=== PATIENT | male | born 1965 | race Caucasian/White ===

== ENCOUNTER 2017-04-09 12:59 | Emergency (ER) | payer MEDICAID ==
[~2017-04-09] VITALS: Ht 177.8 cm; Wt 88.9 kg
[~2017-04-09 12:59] MED LIST: ALLO100T30 PO; AMIO200T42 PO; ASPI-621 PO; CEPH-375 PO; DOCU-131 PO; ERGO500017 PO; GUAI200T3 PO; HYDR-3307 PO; METO25TA35 PO; OMEP-110 PO; OXYC5TAB3 PO; PRED5TAB PO; WARF1TAB7 PO
[2017-04-09 13:02] VITALS: BP 97/64
[2017-04-09] MEDS ORDERED: ONDANSETRON 2MG/ML, 2ML IVPush ONE (13:30)
[2017-04-09] MEDS ORDERED: SODIUM CHLORIDE 0.9% 1,000ML IVBOLUS ONE (13:30)
[2017-04-09 13:46] LABS: BASOPHILS # (AUTO) 0.02 x10^3/uL (0-0.1); BASOPHILS % (AUTO) 0 % (0-1); EOSINOPHILS % (AUTO) 0 % (1-7); LYMPHOCYTES # (AUTO) 1.56 x10^3/uL (1-3.4); LYMPHOCYTES % (AUTO) 24 % (22-44); MD NO; MEAN CORPUSCULAR HEMOGLOBIN 31.8 pg (27.5-34.5); MEAN CORPUSCULAR HGB CONC 33.8 g/dL (33.2-36.2); MEAN CORPUSCULAR VOLUME 94.2 fL (81-97); MEAN PLATELET VOLUME 9.2 fL (7.4-10.4); MONOCYTES # (AUTO) 1.02 x10^3/uL (0.2-0.8); MONOCYTES % (AUTO) 16 % (2-9); NEUTROPHILS # (AUTO) 3.97 x10^3/uL (1.8-6.8); NEUTROPHILS % (AUTO) 60 % (42-75); PLATELET COUNT 168 x10^3/uL (130-400); RED BLOOD COUNT 4.77 x10^6/uL (4.38-5.82)
[2017-04-09 13:48] LABS: ALANINE AMINOTRANSFERASE 36 U/L (12-78); ALBUMIN 3.8 g/dL (3.4-5.0); ANION GAP 15 mmol/L (5-15); CALCIUM 9.7 mg/dL (8.5-10.1); CHLORIDE 103 mmol/L (98-107)
[2017-04-09 13:51] LABS: ALKALINE PHOSPHATASE 55 U/L (45-117); BILIRUBIN,TOTAL 0.6 mg/dL (0.2-1.0); CREATININE 3.69 mg/dL (0.7-1.3); TOTAL PROTEIN 8.2 g/dL (6.4-8.2)
[2017-04-09 17:13] LABS: CLOSTRIDIUM DIFFICILE ANTIGEN NEGATIVE; CLOSTRIDIUM DIFFICILE TOXIN NEGATIVE (Negative)
== END 2017-04-09 18:18 | disposition home or self-care (01) ==
LOC: ED 18:10
DX: E86.0 Dehydration (principal); K52.9 Noninfective gastroenteritis and colitis, unspecified; N18.3 Chronic kidney disease, stage 3 (moderate)
CPT/HCPCS: 36415; 80053; 85025; 87324; 89055; 96360; 99284; J7030

== ENCOUNTER 2018-05-27 11:35 | Emergency (ER) | payer BC, MEDICAID, OTHER ==
[~2018-05-27] VITALS: Ht 177.8 cm; Wt 92.0 kg
[~2018-05-27 11:35] MED LIST changes: -ASPI-621 PO; +ASPI81TA45 PO; -WARF1TAB7 PO; +WARF1TAB74 PO
--- NOTE | 2018-05-27 11:42 | NUR ---
52 YR OLD MALE ARRIVED VIA EMS WITH C/O "PRESSURE/SHARP PAIN BEHIND LEFT SHOULDER BLADE, L ARM AND L NECK. HAD DIZZINESS AND NAUSEA. PT CALLED 911 APPROX 45 MIN LATER. PAIN INITIALLY 9/10. PT CURRENTLY DENIES PAIN. PT ARRIVES WITH NS LOCK IN RAC. SR PER MONITOR, AUTO BP AND PULSE OX IN PLACE. DR LLANES AT BEDSIDE TO EVAL PT.
[2018-05-27] MEDS ORDERED: NITROGLYCERIN SINGLE TAB 0.4 MG SL PRN (12:00)
[2018-05-27] MEDS ORDERED: SODIUM CHLORIDE FLUSH 10ML SYR IVF ONE (12:00)
[2018-05-27 12:18] LABS: BASOPHILS # (AUTO) 0.03 x10^3/uL (0-0.1); BASOPHILS % (AUTO) 0 % (0-1); EOSINOPHILS # (AUTO) 0.27 x10^3/uL (0-0.4); EOSINOPHILS % (AUTO) 3 % (1-7); LYMPHOCYTES # (AUTO) 1.89 x10^3/uL (1-3.4); LYMPHOCYTES % (AUTO) 22 % (22-44); MD NO; MEAN CORPUSCULAR HEMOGLOBIN 32.7 pg (27.5-34.5); MEAN PLATELET VOLUME 8.6 fL (7.4-10.4); MONOCYTES # (AUTO) 0.53 x10^3/uL (0.2-0.8); MONOCYTES % (AUTO) 6 % (2-9); NEUTROPHILS # (AUTO) 5.79 x10^3/uL (1.8-6.8); NEUTROPHILS % (AUTO) 68 % (42-75); PLATELET COUNT 178 x10^3/uL (130-400); RED BLOOD COUNT 4.44 x10^6/uL (4.38-5.82); RED CELL DISTRIBUTION WIDTH 13.2 % (9.4-14.8)
[2018-05-27 12:29] LABS: ALANINE AMINOTRANSFERASE 23 U/L (12-78); ALBUMIN 3.7 g/dL (3.4-5.0); ANION GAP 8 mmol/L (5-15); CHLORIDE 101 mmol/L (98-107); CREATININE 2.94 mg/dL (0.7-1.3)
--- NOTE | 2018-05-27 12:29 | NUR ---
REPORT TO LARY BAILON
[2018-05-27 12:31] LABS: INTERNATIONAL NORMALIZED RATIO 1.02 (0.93-1.1); PROTHROMBIN TIME 10.8 Seconds (9.6-11.5)
[2018-05-27 12:33] LABS: ALKALINE PHOSPHATASE 58 U/L (45-117); BILIRUBIN,TOTAL 0.4 mg/dL (0.2-1.0); TOTAL PROTEIN 7.3 g/dL (6.4-8.2); TROPONIN I < 0.015 ng/mL (0.000-0.045)
--- NOTE | 2018-05-27 12:45 | NUR ---
JUAN C RPT RECD FROM [facility]. ASSUMED PT CARE. PT VSS, DENIES ANY PAIN AT THIS TIME
--- NOTE | 2018-05-27 12:50 | NUR ---
PT OOB TO COMMODE. STOOL SAMPLE COLLECTED AND SENT TO LAB.
--- NOTE | 2018-05-27 12:54 | NUR ---
DR LLANES AT BEDSIDE, TEST RESULTS POC DISCUSSED.
[2018-05-27 13:37] LABS: CLOSTRIDIUM DIFFICILE ANTIGEN NEGATIVE; CLOSTRIDIUM DIFFICILE TOXIN NEGATIVE (Negative)
--- NOTE | 2018-05-27 14:30 | NUR ---
Patient/Caregiver given discharge instructions and they have confirmed that they understand the instructions. Patient ambulatory with steady gait.
[2018-05-27 14:47] VITALS: BP 124/72
== END 2018-05-27 14:49 | disposition home or self-care (01) ==
LOC: ED 12:43
DX: R07.2 Precordial pain (principal); Z87.891 Personal history of nicotine dependence; Z95.1 Presence of aortocoronary bypass graft
CPT/HCPCS: 36415; 71045; 80053; 83880; 84484; 85025; 85610; 85730; 87324; 93005; 99284